=== PATIENT | male | born 1965 | race Caucasian/White ===

== ENCOUNTER 2020-08-12 10:48 | Outpatient (REF) | payer OTHER, SELFPAY ==
[2020-08-12 14:35] LABS: Hemoglobin 16.2 g/dl (14.0-18.0); Mean Corpuscular HGB Conc 33.8 g/dl (31.0-36.0); Mean Corpuscular Hemoglobin 32.3 pg (27.0-33.0); Mean Corpuscular Volume 95.6 fL (80-98); Platelet Count 211 X10*3/uL (160-400); Red Blood Count 5.02 X10*6/uL (4.60-5.80); Red Cell Distribution Width 12.1 % (11.0-16.0); White Blood Count 5.9 X10*3/uL (4.8-10.8)
[2020-08-12 15:00] LABS: Alanine Aminotransferase 30 U/L (0-40); Albumin Level 4.6 g/dL (3.5-5.0); Alkaline Phosphatase 55 U/L (39-117); Anion Gap 14 (12-20); Aspartate Amino Transferase 25 U/L (5-37); Bilirubin Total 0.7 mg/dL (0.0-1.0); Blood Urea Nitrogen 17 mg/dL (9-16); Calcium 9.4 mg/dL (8.4-10.2); Carbon Dioxide 28 mmol/L (22-29); Chloride 103 mmol/L (96-108); Cholesterol 233 mg/dL; Estimated Glomerular Filt Rate > 60; Glucose Fasting 80 mg/dL (60-99); HDL Cholesterol 59 mg/dL; LDL Cholesterol Calculated 156 mg/dl; Potassium 4.4 mmol/L (3.3-5.1); Sodium 141 mmol/L (135-145); Total Protein 7.5 g/dL (6.5-8.0); Triglycerides 90 mg/dL
[2020-08-12 15:02] LABS: Glucose Urine UA NEG (NEG); Leukocyte Esterase Urine NEG (NEG); Nitrite Urine NEG (NEG); Urine Blood NEG (NEG); Urine Ketones NEG (NEG); Urine Protein NEG (NEG-TRACE)
[2020-08-12 15:03] LABS: Appearance Urine CLEAR; Color Urine YELLOW
[2020-08-12 15:11] LABS: RBC Urine 0-2 /HPF (0); WBC Urine 0 /HPF (0-4)
[2020-08-12 15:24] LABS: Prostate Specific Antigen Scr 2.49 ng/mL (<0.05-4.0)
== END 2020-08-12 10:49 | disposition home or self-care (01) ==
LOC: HO.HMGCLDS 10:48
PROVIDERS: PCP Internal Medicine; Visit Provider Internal Medicine
DX: Z00.00 Encounter for general adult medical examination without abnormal findings (principal)
CPT/HCPCS: 36415; 80053; 80061; 81001; 84153; 85027

== ENCOUNTER 2021-10-07 07:28 | Outpatient (REF) | payer OTHER, SELFPAY ==
[2021-10-07 11:34] LABS: Appearance Urine CLEAR; Color Urine YELLOW; Glucose Urine UA NEG (NEG); Leukocyte Esterase Urine NEG (NEG); Nitrite Urine NEG (NEG); Specific Gravity - Urine 1.015 (1.005-1.025); Urine Blood NEG (NEG); Urine Ketones NEG (NEG); Urine Protein NEG (NEG-TRACE)
[2021-10-07 11:38] LABS: Hematocrit 46.3 % (42.0-52.0); Hemoglobin 15.5 g/dl (14.0-18.0); Mean Corpuscular HGB Conc 33.5 g/dl (31.0-36.0); Mean Corpuscular Hemoglobin 31.8 pg (27.0-33.0); Mean Corpuscular Volume 94.9 fL (80.0-98.0); Mean Platelet Volume 10.1 fL (9.4-12.4); Platelet Count 204 X10*3/uL (160-400); Red Blood Count 4.88 X10*6/uL (4.60-5.80); Red Cell Distribution Width 12.6 % (11.0-16.0); White Blood Count 5.1 X10*3/uL (4.8-10.8)
[2021-10-07 11:58] LABS: Alanine Aminotransferase 38 U/L (0-40); Albumin Level 4.3 g/dL (3.5-5.0); Alkaline Phosphatase 52 U/L (39-117); Anion Gap 13 (12-20); Aspartate Amino Transferase 28 U/L (5-37); Bilirubin Total 0.4 mg/dL (0.0-1.0); Blood Urea Nitrogen 15 mg/dL (9-16); Calcium 10.3 mg/dL (8.4-10.2); Carbon Dioxide 28 mmol/L (22-29); Chloride 103 mmol/L (96-108); Cholesterol 228 mg/dL; Estimated Glomerular Filt Rate > 60; Glucose Fasting 95 mg/dL (60-99); HDL Cholesterol 57 mg/dL; LDL Cholesterol Calculated 158 mg/dl; Potassium 5.1 mmol/L (3.3-5.1); Sodium 139 mmol/L (135-145); Total Protein 7.3 g/dL (6.5-8.0); Triglycerides 65 mg/dL
[2021-10-07 12:01] LABS: RBC Urine 0-2 /HPF (0); WBC Urine 0 /HPF (0-4)
[2021-10-07 12:06] LABS: Prostate Specific Antigen Scr 3.08 ng/mL (<0.05-4.0)
[2021-10-09 05:06] LABS: Lyme Abs Screen <0.90 index
== END 2021-10-07 07:29 | disposition home or self-care (01) ==
LOC: HO.HMGCLDS 07:28
PROVIDERS: Visit Provider Internal Medicine
DX: Z00.00 Encounter for general adult medical examination without abnormal findings (principal); Z12.5 Encounter for screening for malignant neoplasm of prostate; T14.8XXA Other injury of unspecified body region, initial encounter; W57.XXXA Bitten or stung by nonvenomous insect and other nonvenomous arthropods, initial encounter
CPT/HCPCS: 36415; 80053; 80061; 81001; 84153; 85027; 86617; 86618

== ENCOUNTER 2022-05-13 13:13 | Emergency (ER) | payer OTHER, SELFPAY ==
--- NOTE | ~2022-05-13 | CT_ITS ---
EXAMINATION: CT ABDOMEN AND PELVIS WITHOUT CONTRAST CLINICAL INFORMATION: Left lower quadrant abdominal pain. Rule out diverticulitis COMPARISON: None TECHNIQUE: Multidetector volumetric imaging was performed from the superior aspect of the liver through the pubic symphysis. Sagittal and coronal reformatted images were obtained on the technologist's workstation. This CT examination was performed using dose optimization techniques as appropriate, variously including the following: *Automated exposure control *Adjustment of mA and/or kV according to patient size (this includes techniques or standardized protocols for targeted exams where dose is matched to indication/reason for exam; i.e. extremities or head) *Use of iterative reconstruction technique DLP: 460 mGy-cm FINDINGS: LUNG BASES: The visualized lung bases are unremarkable. LIVER, GALLBLADDER, AND BILIARY TREE: The liver is normal in size, shape, and attenuation. No focal hepatic lesion or biliary ductal dilatation is present. Gallbladder is incompletely distended and contains couple small calcified stones. No gallbladder wall thickening or pericholecystic inflammatory changes. PANCREAS: Unremarkable. SPLEEN: Unremarkable. ADRENAL GLANDS: Unremarkable. KIDNEYS AND URETERS: The kidneys are normal in size, shape, and attenuation. No hydronephrosis, hydroureter, or calculi seen. No perinephric stranding. BLADDER: Unremarkable. GASTROINTESTINAL TRACT: Colonic diverticulosis. Short segment mural thickening of the proximal sigmoid colon with pericolonic inflammatory stranding consistent with acute diverticulitis. No extraluminal gas or pericolonic abscess. No additional bowel wall thickening. No dilated bowel loops. Normal appendix. No free air or ascites. ABDOMINAL WALL: No significant hernia is appreciated. Both testes appear retracted into the upper scrotum/lower inguinal canals. LYMPH NODES: No lymphadenopathy. VASCULAR: Unremarkable. PELVIC VISCERA: Unremarkable. OSSEOUS STRUCTURES: No acute fracture or suspicious osseous lesion. CT/CT abdomen pelvis wo IV con IMPRESSION: 1. Findings consistent with acute uncomplicated sigmoid diverticulitis. No evidence of perforation or abscess. 2. Cholelithiasis.
[2022-05-13 13:41] VITALS: BP 114/76; PULSE 88; RESP 17; TEMP 36.3; O2SAT 97; BMI 25.8
--- NOTE | 2022-05-13 13:41 | ED_ITS ---
HPI - Abdominal Pain General Chief Complaint: Abdominal Pain Stated Complaint: diverticulitis Time Seen by Provider: 05/13/22 17:46 Source: patient Mode of arrival: ambulatory Limitations: no limitations History of Present Illness HPI narrative: 56-year-old male here with left lower quadrant abdominal pain since Wednesday with no nausea, vomiting, diarrhea, urinary symptoms, fevers or chills. Seen at urgent care and referred in for further evaluation Related Data Home Medications Medication Instructions Recorded Confirmed multivitamin 1 tab PO DAILY 08/12/20 08/13/21 omega-3 fatty acids 500 mg capsule 500 mg PO DAILY 08/12/20 08/13/21 Previous Rx's Medication Instructions Recorded terbinafine HCl 250 mg tablet 250 mg PO DAILY #90 tabs 08/12/20 vardenafil 20 mg tablet (Levitra) 20 mg PO DAILY #20 tabs 08/12/20 pravastatin 20 mg tablet 20 mg PO DAILY #90 tabs 04/08/22 amoxicillin 875 mg-potassium 1 tab PO BID #14 tabs 05/13/22 clavulanate 125 mg tablet Allergies Allergy/AdvReac Type Severity Reaction Status Date / Time No Known Allergies Allergy Verified 05/13/22 12:43 Review of Systems Review of Systems Yes all other systems are reviewed and are negative Constitutional: Reports no additional constitutional complaints, Denies body ache(s), Denies chills, Denies fever(s), Denies headache(s) and Denies weakness Eyes: Reports no additional eye complaints and Denies change in vision Reports system reviewed and no additional complaints, except as documented, Denies dizziness, Denies headache(s), Denies nasal congestion, Denies nasal discharge and Denies neck pain Cardiovascular: Reports no additional cardiovascular complaints, Denies chest pain, Denies leg edema and Denies dyspnea Respiratory: Reports no additional respiratory complaints, Denies cough and Denies dyspnea Gastrointestinal: Reports no additional gastrointestinal complaints, Reports abdominal pain, Denies diarrhea, Denies nausea and Denies vomiting Genitourinary: Denies urinary incontinence Musculoskeletal: Reports no additional musculoskeletal complaints, Denies back pain, Denies arthralgias, Denies joint swelling, Denies neck pain, Denies numbness and Denies tingling Skin/Breast: Reports system reviewed and no additional complaints, except as docu and Denies rash Reports system reviewed and no additional complaints, except as documented, Denies dizziness, Denies headache(s), Denies numbness, Denies tingling and Denie s weakness [facility] Past Medical History Attestation statement: The following information was validated with the patient. Source: old records reviewed and nursing notes reviewed Medical History Annual physical exam Bulging lumbar disc Bulging of cervical intervertebral disc GERD (gastroesophageal reflux disease) Hyperlipemia Left ACL tear Tick bite Surgical History H/O colonoscopy H/O hernia repair Family History Family History Father Myocardial infarct Mother No problems noted. Social History Social History Housing: House Alcohol intake: current Alcohol intake frequency: holidays/special occasions only Patient Tobacco Use Status: Never used Tobacco e-Cigarette/Vaping Use: Never Used Current occupational status: employed Physical Exam ED Vital Signs: Vital Signs - 24 hr 05/13/22 13:41 Temperature 97.4 F Pulse Rate 88 Respiratory Rate 17 Blood Pressure 114/76 Pulse Oximetry 97 Oxygen Delivery Method Room Air BMI result Body Mass Index 25.8 Const General: cooperative, healthy appearing, comfortable and no acute distress Orientation/consciousness: patient oriented x3 Limitations: no limitations HENMT Head: Yes normal to inspection Ears: hearing grossly normal bilaterally Eyes General: appearance normal, both eyes and all related structures Neck Neck: Yes normal visual inspection Chest Chest palpation & inspection: normal inspection of the chest Resp Effort & Inspection: normal respiratory effort Cardio Peripheral pulses: Peripheral pulses 2+ throughout GI Inspection: Yes normal to inspection Palpation (GI): Soft to palpation, Tenderness to palpation present (GI) (LLQ) with no rebound tenderness and no guarding Back/Spine/Pelvis Thoracic/Lumbar Spine: thoracic and lumbar spine normal to inspection Skin General skin exam: no rashes or lesions noted Neuro General: patient oriented x3 and moves all extremities Cognition (Neuro): normal cognition Gait exam (Neuro): Normal gait present Course Course Course Narrative: This is a rapid medical exam. Deferred additional HPI, ROS and PE to primary provider. 56 yo male here with left sided abdominal pain since Wednesday. No nausea/vomiting/diarrhea/urinary symptoms, fevers, chills. No abdominal surgery history. Patient was seen at urgent care and was referred in to rule out diverticulitis. At urgent care patient was noted to have heart rate of 110 and temperature 99.8 degrees. Will check labs including blood cultures, lactic acid, UA, COVID screen, CT scan A/P VSS Reevaluation(s) Reevaluation #1: 1750-CT consistent with acute diverticulitis. Labs are unremarkable. Patient tolerating p.o.. Pain well controlled. Patient be discharged home with course of antibiotics. Reviewed worrisome signs and symptoms of when to return to the emergency room. Comfortable plan for discharge home. Medical Decision Making Medical Decision Making [facility] Narrative: 56-year-old male here with left lower quadrant pain since Wednesday On exam tenderness to palpation. No rebound or guarding Differential Diagnosis Diverticulitis Lab Data [facility] Lab Attestation statement: I reviewed the patient's lab results. Result Diagrams: 05/13/22 14:35 05/13/22 14:35 Labs: Lab Results 05/13/22 05/13/22 05/13/22 Range/Units 14:35 14:35 14:35 WBC 10.2 (4.8-10.8) X10*3/uL RBC 4.91 (4.60-5.80) X10*6/uL Hgb 15.7 (14.0-18.0) g/dl Hct 46.2 (42.0-52.0) % MCV 94.1 (80.0-98.0) fL MCH 32.0 (27.0-33.0) pg MCHC 34.0 (31.0-36.0) g/dl RDW 12.1 (11.0-16.0) % Plt Count 217 (160-400) X10*3/uL MPV 9.5 (9.4-12.4) fL Immature Gran % (Auto) 0.4 (0.0-0.4) % Neut % (Auto) 77.5 H (45-73) % Lymph % (Auto) 13.4 L (20-40) % [place] % (Auto) 7.3 (2-11) % Eos % (Auto) 1.1 (0-4) % Baso % (Auto) 0.3 (0-2) % Lymph # (Auto) 1.4 (1.2-4.9) X10*3/uL [place] # (Auto) 0.7 (0.1-1.2) X10*3/uL Eos # (Auto) 0.1 (0.0-0.4) X10*3/uL Baso # (Auto) 0.0 (0.0-0.2) X10*3/uL Abs Immat Gran (auto) 0.04 H (0.00-0.03) X10*3/uL Absolute Neuts (auto) 7.9 (2.0-8.3) x10*3/uL Absolute Nucleated RBC 0.000 (0.0-0.012) X10*3/uL Nucleated RBC % (auto) 0.0 (0.0-0.2) /100WBC PT 11.9 (10.0-13.1) SEC INR 1.0 (0.9-1.1) Sodium 141 (135-145) mmol/L Potassium 4.2 (3.3-5.1) mmol/L Chloride 102 (96-108) mmol/L Carbon Dioxide 29 (22-29) mmol/L Anion Gap 14 (12-20) BUN 14 (9-16) mg/dL Creatinine 0.95 (0.5-1.4) mg/dL Estim Creat Clear Calc 85.0 Estimated GFR > 60 Random Glucose 99 (60-115) mg/dL Lactic Acid (0.5-2.0) mmol/L Calcium 10.0 (8.4-10.2) mg/dL Total Bilirubin 0.4 (0.0-1.0) mg/dL Direct Bilirubin < 0.2 (0.0-0.5) mg/dL AST 22 (5-37) U/L ALT 25 (0-40) U/L Alkaline Phosphatase 63 (39-117) U/L Total Protein 7.3 (6.5-8.0) g/dL Albumin 4.4 (3.5-5.0) g/dL Lipase 22 (8-78) U/L Influenza Type A (PCR) (Negative) Influenza Type B (PCR) (Negative) RSV RNA Qual (PCR) (Negative) SARS-CoV-2 RNA (RT-PCR) (Negative) 05/13/22 05/13/22 Range/Units 14:35 14:35 WBC (4.8-10.8) X10*3/uL RBC (4.60-5.80) X10*6/uL Hgb (14.0-18.0) g/dl Hct (42.0-52.0) % MCV (80.0-98.0) fL MCH (27.0-33.0) pg MCHC (31.0-36.0) g/dl RDW (11.0-16.0) % Plt Count (160-400) X10*3/uL MPV (9.4-12.4) fL Immature Gran % (Auto) (0.0-0.4) % Neut % (Auto) (45-73) % Lymph % (Auto) (20-40) % [place] % (Auto) (2-11) % Eos % (Auto) (0-4) % Baso % (Auto) (0-2) % Lymph # (Auto) (1.2-4.9) X10*3/uL [place] # (Auto) (0.1-1.2) X10*3/uL Eos # (Auto) (0.0-0.4) X10*3/uL Baso # (Auto) (0.0-0.2) X10*3/uL Abs Immat Gran (auto) (0.00-0.03) X10*3/uL Absolute Neuts (auto) (2.0-8.3) x10*3/uL Absolute Nucleated RBC (0.0-0.012) X10*3/uL Nucleated RBC % (auto) (0.0-0.2) /100WBC PT (10.0-13.1) SEC INR (0.9-1.1) Sodium (135-145) mmol/L Potassium (3.3-5.1) mmol/L Chloride (96-108) mmol/L Carbon Dioxide (22-29) mmol/L Anion Gap (12-20) BUN (9-16) mg/dL Creatinine (0.5-1.4) mg/dL Estim Creat Clear Calc Estimated GFR Random Glucose (60-115) mg/dL Lactic Acid 1.2 (0.5-2.0) mmol/L Calcium (8.4-10.2) mg/dL Total Bilirubin (0.0-1.0) mg/dL Direct Bilirubin (0.0-0.5) mg/dL AST (5-37) U/L ALT (0-40) U/L Alkaline Phosphatase (39-117) U/L Total Protein (6.5-8.0) g/dL Albumin (3.5-5.0) g/dL Lipase (8-78) U/L Influenza Type A (PCR) NEGATIVE (Negative) Influenza Type B (PCR) NEGATIVE (Negative) RSV RNA Qual (PCR) NEGATIVE (Negative) SARS-CoV-2 RNA (RT-PCR) NEGATIVE (Negative) Radiology Impression Discussion of test interpretation with radiology: I have reviewed the radiologist's reading. Radiologist Impression: IMPRESSION: 1.? Findings consistent with acute uncomplicated sigmoid diverticulitis. No evidence of perforation or abscess. 2.? Cholelithiasis. ? Discharge Plan Discharge Clinical Impression: Diverticulitis Patient Disposition: Home, Self-Care Instructions: Diverticulitis (ED), Diverticulitis Diet (ED) Prescriptions: New amoxicillin-pot clavulanate 875-125 mg tablet 1 tab PO BID Qty: 14 0RF No Action pravastatin 20 mg tablet 20 mg PO DAILY Qty: 90 1RF Rx Instructions: schedule next PCP appt for more refills multivitamin Tablet 1 tab PO DAILY omega-3 fatty acids 500 mg capsule 500 mg PO DAILY terbinafine HCl 250 mg tablet 250 mg PO DAILY Qty: 90 0RF vardenafil [Levitra] 20 mg tablet 20 mg PO DAILY Qty: 20 2RF Referrals: Lora Martinez MD [Primary Care Provider] - 1 week Stand Alone Forms: Work/School Release
[2022-05-13 14:44] LABS: MANUAL DIFF FLAG NO
[2022-05-13 14:47] LABS: Basophils Percent Auto 0.3 % (0-2); Eosinophils Absolute Auto 0.1 X10*3/uL (0.0-0.4); Eosinophils Percent Auto 1.1 % (0-4); Hematocrit 46.2 % (42.0-52.0); Hemoglobin 15.7 g/dl (14.0-18.0); Imm Gran Abs Auto 0.04 X10*3/uL (0.00-0.03); Imm Gran Pct Auto 0.4 % (0.0-0.4); Lymphocytes Absolute Auto 1.4 X10*3/uL (1.2-4.9); Lymphocytes Percent Auto 13.4 % (20-40); Mean Corpuscular Volume 94.1 fL (80.0-98.0); Mean Platelet Volume 9.5 fL (9.4-12.4); Monocytes Absolute Auto 0.7 X10*3/uL (0.1-1.2); Monocytes Percent Auto 7.3 % (2-11); Neutrophils Absolute Auto 7.9 x10*3/uL (2.0-8.3); Neutrophils Percent Auto 77.5 % (45-73); Platelet Count 217 X10*3/uL (160-400); Red Blood Count 4.91 X10*6/uL (4.60-5.80); Red Cell Distribution Width 12.1 % (11.0-16.0); White Blood Count 10.2 X10*3/uL (4.8-10.8)
[2022-05-13 14:53] LABS: Prothrombin Time 11.9 SEC (10.0-13.1)
[2022-05-13 15:05] LABS: Lactic Acid 1.2 mmol/L (0.5-2.0)
[2022-05-13 15:09] LABS: Alanine Aminotransferase 25 U/L (0-40); Albumin Level 4.4 g/dL (3.5-5.0); Alkaline Phosphatase 63 U/L (39-117); Anion Gap 14 (12-20); Aspartate Amino Transferase 22 U/L (5-37); Bilirubin Direct < 0.2 mg/dL (0.0-0.5); Bilirubin Total 0.4 mg/dL (0.0-1.0); Blood Urea Nitrogen 14 mg/dL (9-16); Carbon Dioxide 29 mmol/L (22-29); Chloride 102 mmol/L (96-108); Estimated Glomerular Filt Rate > 60; Glucose Random 99 mg/dL (60-115); Lipase 22 U/L (8-78); Potassium 4.2 mmol/L (3.3-5.1); Sodium 141 mmol/L (135-145); Total Protein 7.3 g/dL (6.5-8.0)
[2022-05-13 15:24] LABS: Influenza A PCR NEGATIVE (Negative); Influenza B PCR NEGATIVE (Negative); Resp Syncy Virus RNA Qual PCR NEGATIVE (Negative); SARS COV2 PCR INHOUSE NEGATIVE (Negative)
== END 2022-05-13 18:05 | disposition home or self-care (01) ==
LOC: HO.ED 17:55
PROVIDERS: Nurse Practitioner Family; Emergency Provider Emergency Medicine; PCP Internal Medicine
DX: K57.32 Diverticulitis of large intestine without perforation or abscess without bleeding (principal); R10.32 Left lower quadrant pain; Z20.822 Contact with and (suspected) exposure to COVID-19
CPT/HCPCS: 0241U; 36415; 74176; 80048; 80076; 83605; 83690; 85025; 85610; 87040; 99282; 99284

== ENCOUNTER 2022-06-24 09:04 | Outpatient (REF) | payer OTHER, SELFPAY ==
[2022-06-24 11:30] LABS: Hematocrit 46.3 % (42.0-52.0); Hemoglobin 15.9 g/dl (14.0-18.0); Mean Corpuscular HGB Conc 34.3 g/dl (31.0-36.0); Mean Corpuscular Hemoglobin 32.4 pg (27.0-33.0); Mean Corpuscular Volume 94.5 fL (80.0-98.0); Platelet Count 213 X10*3/uL (160-400); Red Cell Distribution Width 12.2 % (11.0-16.0)
[2022-06-24 12:09] LABS: Alanine Aminotransferase 31 U/L (0-40); Albumin Level 4.3 g/dL (3.5-5.0); Alkaline Phosphatase 52 U/L (39-117); Anion Gap 13 (12-20); Aspartate Amino Transferase 28 U/L (5-37); Bilirubin Total 0.6 mg/dL (0.0-1.0); Blood Urea Nitrogen 16 mg/dL (9-16); Calcium 9.5 mg/dL (8.4-10.2); Carbon Dioxide 27 mmol/L (22-29); Chloride 103 mmol/L (96-108); Cholesterol 189 mg/dL; Estimated Glomerular Filt Rate > 60; Glucose Fasting 88 mg/dL (60-99); HDL Cholesterol 55 mg/dL; LDL Cholesterol Calculated 118 mg/dl; Potassium 4.2 mmol/L (3.3-5.1); Sodium 139 mmol/L (135-145); Total Protein 7.1 g/dL (6.5-8.0); Triglycerides 84 mg/dL
== END 2022-06-24 09:05 | disposition home or self-care (01) ==
LOC: HO.HMGCLDS 09:04
PROVIDERS: PCP Internal Medicine; Visit Provider Internal Medicine
DX: Z00.00 Encounter for general adult medical examination without abnormal findings (principal); Z12.5 Encounter for screening for malignant neoplasm of prostate; E78.5 Hyperlipidemia, unspecified
CPT/HCPCS: 36415; 80053; 80061; 84153; 85027

== ENCOUNTER → 2022-10-13 15:36 | Outpatient (BNVA) | payer OTHER, SELFPAY | PROVIDERS: PCP Internal Medicine; Visit Provider Nurse Practitioner Family ==

== ENCOUNTER 2022-11-24 11:48 | Day surgery (SDC) | payer OTHER, SELFPAY ==
--- NOTE | 2022-11-23 10:42 | HO.ANESPROP2 ---
Documented by User: Paola Hoffmann NP 11/23/22 10:43 HPI - Anesthesia Eval Consult details Narrative: 57yo M for Colonoscopy PMFSH Active Problems Active Problems: All Active Problems (Updated 08/26/22 @ 10:07 by Lora Martinez MD) Tick bite (Acute) Colon polyps (Acute) Elevated PSA (Acute) Actinic keratoses (Acute) GERD (gastroesophageal reflux disease) (Acute) Tick bite (Acute) Hyperlipemia (Acute) Annual physical exam (Acute) Past Medical History Medical History Annual physical exam Bulging lumbar disc Bulging of cervical intervertebral disc GERD (gastroesophageal reflux disease) Hyperlipemia Left ACL tear Tick bite Family History Family History Father Myocardial infarct Mother No problems noted. Surgical History Surgical History H/O colonoscopy H/O hernia repair Social History Social History Housing: House Alcohol intake: current Alcohol intake frequency: holidays/special occasions only Patient Tobacco Use Status: Never used Tobacco e-Cigarette/Vaping Use: Never Used Use of substances other than those prescribed or required for medical reasons: No Are you DNR?: No Advance Directives: No Advance Directives Information Provided: Yes Current occupational status: employed Cognitive needs: No Hearing needs: No Vision needs: No Meds Allergies Allergy/AdvReac Type Severity Reaction Status Date / Time No Known Allergies Allergy Verified 11/20/22 14:09 Home Medications Medication Instructions Recorded Confirmed Last Taken Type multivitamin 1 tab PO DAILY 08/12/20 11/20/22 Unknown History omega-3 fatty acids 500 mg capsule 500 mg PO DAILY 08/12/20 11/20/22 Unknown History Exam Exam Date and Time: November 23, 2022 1042 Pertinent Lab Results Pertinent Lab Results: Laboratory Tests 06/24/22 06/24/22 09:23 09:23 WBC 6.0 Hgb 15.9 Hct 46.3 Plt Count 213 Sodium 139 Potassium 4.2 Chloride 103 Carbon Dioxide 27 BUN 16 Creatinine 1.08 Assessment and Plan Assessment Anesthesia Assessment: Chart Reviewed Documented by User: Jerry Faye MD 11/24/22 12:35 PMFSH Past Medical History Medical History Annual physical exam Bulging lumbar disc Bulging of cervical intervertebral disc GERD (gastroesophageal reflux disease) Hyperlipemia Left ACL tear Tick bite Family History Family History Father Myocardial infarct Mother No problems noted. Family history of problems with anesthesia: No Surgical History Surgical History H/O colonoscopy H/O hernia repair History of Problems with Anesthesia: No Social History Social History Housing: House Alcohol intake: current Alcohol intake frequency: holidays/special occasions only Patient Tobacco Use Status: Never used Tobacco e-Cigarette/Vaping Use: Never Used Use of substances other than those prescribed or required for medical reasons: No Are you DNR?: No Advance Directives: No Advance Directives Information Provided: Yes Current occupational status: employed Cognitive needs: No Hearing needs: No Vision needs: No Meds Allergies Allergy/AdvReac Type Severity Reaction Status Date / Time No Known Allergies Allergy Verified 11/20/22 14:09 Home Medications Medication Instructions Recorded Confirmed Last Taken Type multivitamin 1 tab PO DAILY 08/12/20 11/20/22 Unknown History omega-3 fatty acids 500 mg capsule 500 mg PO DAILY 08/12/20 11/20/22 Unknown History Exam Airway Mallampati Class: III TM Dist: >3cm Neck ROM: Full Assessment and Plan Assessment Anesthesia Assessment: Anesthesia Plan Discussed Final Anesthetic Review Family History of Problems with Anesthesia: No History of Problems with Anesthesia: No NPO: Yes ASA Class: II Final Preanesthetic Review: No Changes in Pt Med Stat, Meds/Allgs Chart Reviewed, Consent Obtained/Reviewed and Anes Risks/Benef Reviewed Patient Risk: Low Procedure Risk: Low Anesthetic Plan Anesthetic Plan: MAC: Disposition: Standard PACU
[2022-11-24 12:18] VITALS: BP 136/86; PULSE 71; RESP 16; TEMP 36.4; O2SAT 99; BMI 25.0
[2022-11-24] MEDS: Lactated Ringers 1,000 ML 100 ML IVCONT (12:27)
[2022-11-24 12:35] VITALS: BMI 25.0
--- NOTE | 2022-11-24 12:50 | MHC.SHP ---
Pre-Procedural Eval Section A Date of Service: 11/24/22 Section B Chief Complaint: Polyp of colon Relevant Family History (Specify if Yes): No Relevant Social History: None Present Medications: see Short Stay Collaborative assessment Medical History: Significant History (Bulging lumbar disc Bulging of cervical intervertebral disc GERD (gastroesophageal reflux disease) Hyperlipemia Left ACL tear Tick bite) History of Previous Operations: Relevant previous surgery/procedure and date(s) (H/O colonoscopy H/O hernia repair) Allergies: Allergies Allergy/AdvReac Type Severity Reaction Status Date / Time No Known Allergies Allergy Verified 11/20/22 14:09 Review of Systems Sugical H&P ROS: Negative: Constitution, Cardiovascular, Respiratory, Neurological, Psychiatric, Hem-Onc, Allergic/Immunologic, Gastrointestinal, Genitourinary, Musculoskeletal, Integumentary, Endocrine and Eyes/Ears/Nose/Throat Exam Surgical H&P Exam: Normal: HEENT, Normal: Heart, Normal: Lungs, Normal: Extremities, Normal: Abdomen, Normal: Skin and Normal: Neurological Plan Diagnosis/Plan: Unchanged I have reviewed the history and physical and performed a pertinent physical examination on my patient. No changes have occurred unless specified. Time Spent With Patient Time: Total time managing care of this patient today ____ minutes.
--- NOTE | 2022-11-24 12:58 | W.PM.OPN ---
Operative Note Operative Note Date of Service: 11/24/22 Narrative: Operative Information Procedure Description: Colonoscopy Indication: hx of colon polyps Anesthesia: MAC COLONOSCOPY Instrument: Olympus variable stiffness pediatric scope 190L Colonoscopy Monitoring: Vital signs and clinical assessment, continuous EKG monitoring, Pulse oximetry, Carbon Dioxide monitoring and blood pressure monitoring were done throughout the procedure. Colon withdrawal time was 6 minutes. Procedure: The patient was placed in the left lateral decubitis position and pre-procedure medications were administered. After a digital rectal examination of the ano-rectum, the video colonoscope was inserted into the rectum and advanced through the colon to the cecum/TI. The colonoscope was slowly withdrawn in a retrograde panoramic fashion and the colon mucosa was carefully examined including a retroflexed view of the rectum. Findings and interventions are described below. Procedure Difficulty: easy Findings: Terminal Ileum-normal Cecum:normal right sided retroflexion was normal Ascending Colon: normal Transverse Colon -normal Descending Colon:normal Sigmoid Colon: moderate diverticulosis with some luminal narrowing Rectum: Retroflexion with small internal hemorrhoids, grade I Anorectum - normal Colon preparation: [place] Bowel Preparation Scale Right colon; 3 Transverse colon: 3 Left colon; 3 (0 = Unprepared colon segment with mucosa not seen due to solid stool that cannot be cleared. 1 = Portion of mucosa of the colon segment seen, but other areas of the colon segment not well seen due to staining, residual stool and/or opaque liquid. 2 = Minor amount of residual staining, small fragments of stool and/or opaque liquid, but mucosa of colon segment seen well. 3 = Entire mucosa of colon segment seen well with no residual staining, small fragments of stool or opaque liquid) Impression and Post Procedure Diagnosis: internal hemorrhoids diverticular disease Plan: High fiber diet leaflet Avoid straining at stool, epsom salts and sitz bath, anusol supps or cream Repeat Colonoscopy in 5-6 years or earlier if clinically indicated due to prio hx of adenomatous polyps Above findings were reviewed with the patient and relevant handouts were provided if indicated.
[2022-11-24 13:27] VITALS: BP 99/61; PULSE 70; RESP 16; TEMP 36.3; O2SAT 96
[2022-11-24 13:42] VITALS: BP 107/75; PULSE 75; RESP 16; TEMP 37; O2SAT 98
== END 2022-11-24 14:57 | disposition home or self-care (01) ==
PROVIDERS: PCP Internal Medicine; Visit Provider Internal Medicine Gastroenterology
PROC: 0DJD8ZZ Inspection of Lower Intestinal Tract, Via Natural or Artificial Opening Endoscopic (ICD-10-PCS; CPT 45378; principal; 2022-11-24 13:40)
DX: Z12.11 Encounter for screening for malignant neoplasm of colon (principal); Z86.010 Personal history of colon polyps; K57.30 Diverticulosis of large intestine without perforation or abscess without bleeding; K64.0 First degree hemorrhoids; E78.5 Hyperlipidemia, unspecified; K21.9 Gastro-esophageal reflux disease without esophagitis; Z79.899 Other long term (current) drug therapy
CPT/HCPCS: 45378

== ENCOUNTER 2022-12-30 07:40 | Outpatient (AMB) | payer OTHER, SELFPAY ==
--- NOTE | 2022-12-30 08:08 | MHC.OFFVIS ---
Intake Vital Signs 12/30/22 08:09 Height 5 ft 10 in Weight 169 lb 12.095 oz BMI 24.4 BP 137/77 Blood Pressure Location Lt brachial Position Sitting Pulse 62 Intake Visit Reasons: Polyps Intake Note: Rylan presents in office as a est.patient for post-op for polyps pt got it done 11.24.22 PT CC: pt reports having no concerns pt denies any other GI Issues [employer] Required: No Accompanied by: Self / Same As Patient Allergies No Known Allergies Allergy (Verified 12/30/22 08:08) HPI Polyps HPI Details LAST VISIT Colon polyps Screen for colon cancer Patient denies any GI, cardiac or respiratory symptoms.? Denies any issues with anesthesia in the past.? Denies any history of sleep apnea.? No history infectious diseases in the past or present.? Not on any anticoagulation therapy.? As mentioned above patient had colonoscopy in May of 2018, tubular adenoma found and recommendation was made to return in 3-5 years. Patient denies melena, hematochezia, unintentional weight loss or ribbon like stools.? Discussed at length the pre-procedure,? prep, diet & medications as well as what to expect prior, during and after the procedure.?? Stressed the importance of good bowel prep. ?Recommended the use of Vaseline or Calmoseptine OTC & baby wipes with bowel movements to promote comfort.? ?Patient verbalizes understanding and agrees to plan of care.? He was given the opportunity to ask questions and all questions answered.? We will see him after the procedure.? Plan Medications New bisacodyl (Dulcolax (bisacodyl)) take 2 tabs at noon the day before your colonoscopy 10 mg (2 x 5 mg) PO ONCE 1 day 2 tabs 0RF Z12.11 polyethylene glycol 3350 (Miralax) As directed by gastroenterology department at [facility] 238 grams PO ONCE 238 grams 0RF Z12.11 COLONOSCOPY Findings: Terminal Ileum-normal Cecum:normal right sided retroflexion was normal Ascending Colon: normal Transverse Colon -normal Descending Colon:normal Sigmoid Colon: moderate diverticulosis with some luminal narrowing Rectum: Retroflexion with small internal hemorrhoids, grade I Anorectum - normal Colon preparation: Hop Bottom Bowel Preparation Scale Right colon; 3 Transverse colon: 3 Left colon; 3 (0 = Unprepared colon segment with mucosa not seen due to solid stool that cannot be cleared. 1 = Portion of mucosa of the colon segment seen, but other areas of the colon segment not well seen due to staining, residual stool and/or opaque liquid. 2 = Minor amount of residual staining, small fragments of stool and/or opaque liquid, but mucosa of colon segment seen well. 3 = Entire mucosa of colon segment seen well with no residual staining, small fragments of stool or opaque liquid) Impression and Post Procedure Diagnosis: internal hemorrhoids diverticular disease Plan: High fiber diet leaflet Avoid straining at stool, epsom salts and sitz bath, anusol supps or cream Repeat Colonoscopy in 5-6 years or earlier if clinically indicated due to prio hx of adenomatous polyps TODAY'S VISIT Patient is here today for follow-up and to discuss colonoscopy results. Patient denies any ill effects from the prep, anesthesia or procedure itself. Patient denies any GI concerning symptoms. Reports to be moving his bowels daily without any issues. Occasionally takes Metamucil to help her move his bowels better. Patient occasionally will have blood after bowel movement when wiping. Otherwise denies melena, hematochezia, unintentional weight loss or ribbon like stools. Patient denies dyspepsia, dysphagia or odynophagia. Colonoscopy results discussed with patient. Diverticulosis of sigmoid colon, internal hemorrhoids otherwise no polyps found. [facility] Medical History Annual physical exam Bulging lumbar disc Bulging of cervical intervertebral disc GERD (gastroesophageal reflux disease) Hyperlipemia Left ACL tear Tick bite Surgical History H/O colonoscopy H/O hernia repair Family History Father Myocardial infarct Mother No problems noted. Social History Housing: House Alcohol intake: current Alcohol intake frequency: holidays/special occasions only Patient Tobacco Use Status: Never used Tobacco e-Cigarette/Vaping Use: Never Used Current occupational status: employed Cognitive needs: No Hearing needs: No Vision needs: No Review of Systems Const Denies weight gain and Denies weight loss ENT Reports no additional complaints, Denies dysphagia and Denies odynophagia Card Reports no additional complaints Resp Reports no additional complaints GI Denies abdominal pain, Denies belching, Denies melena, Denies bloating, Denies change in bowel habits, Denies dysphagia, Denies excessive flatus, Denies dyspepsia, Denies heartburn, Denies diarrhea, Denies loose stools, Denies nausea, Denies odynophagia and Denies vomiting Reports no additional complaints Musc Reports no additional complaints Neuro Reports no additional complaints Psych Reports no additional complaints Endo Reports no additional complaints Physical Exam Vital Signs: Last Vital Signs Pulse 62 12/30/22 08:09 BP 137/77 12/30/22 08:09 BMI result Body Mass Index 24.4 Const General: healthy appearing, no acute distress and well developed Nutritional Appearance: well nourished Orientation/consciousness: patient oriented x3 HEENT Head: Yes normal to inspection, Yes normocephalic and Yes atraumatic Face and sinus: Yes normal facial exam Mouth: Normal oral and palatal mucosa present Throat: Yes posterior oropharynx normal, Yes tonsils normal and Yes uvula midline Eyes General: appearance normal, both eyes and all related structures Neck Neck: Yes normal visual inspection, Yes full ROM and Yes trachea midline Thyroid: Thyroid normal Resp Effort & Inspection: normal respiratory effort, able to speak in complete sentences, no tracheal deviation and symmetric chest movement Auscultation: clear to auscultation bilaterally Cardio Rate: regular rate Heart sounds: S1 normal heart sound present and S2 normal heart sound present GI Inspection: Yes normal to inspection and No distended Palpation (GI): Soft to palpation, not firm, nontender and No hepatosplenomegaly present Auscultation: normal bowel sounds General: Yes no CVA tenderness Back/Spine/Pelvis Back: no CVA tenderness Skin General skin exam: elasticity normal, turgor normal and dry skin Neuro General: patient oriented x3 Psych Appearance: grossly normal Mental Status: mental status grossly normal Speech and movement: Normal speech and movement present Affect: normal affect Assessment & Plan Assessment & Plan (1) Status post colonoscopy: Code(s): Z98.890 - Other specified postprocedural states Plan: Colonoscopy will be repeated in 5 years. Last colonoscopy had 6 polyps. Patient denies any ill effects from the prep, anesthesia or procedure itself. Patient will follow-up with us on as-needed basis. He is agreeable to this plan and verbalizes understanding of instructions. He was given the opportunity to ask questions and all questions answered. Thank you for allowing me to participate in his care Coding Level of Care Code Est Pt Level 3 (00267) Diagnoses Status post colonoscopy Z98.890 Time Spent (min) 25 Comment 15 minutes spent with patient and additional 10 minutes spent reviewing his records
[2022-12-30 08:09] VITALS: BP 137/77; PULSE 62; BMI 24.4
== END 2022-12-30 08:26 | disposition home or self-care (01) ==
PROVIDERS: PCP Internal Medicine; Visit Provider Nurse Practitioner Family
DX: Z98.890 Other specified postprocedural states (principal)
CPT/HCPCS: 99213

== ENCOUNTER → 2022-12-30 07:40 | Outpatient (BNVA) | payer OTHER, SELFPAY | PROVIDERS: PCP Internal Medicine; Visit Provider Nurse Practitioner Family ==

== ENCOUNTER 2023-07-21 14:07 | Outpatient (AMB) | payer OTHER, SELFPAY ==
--- NOTE | 2023-07-21 14:09 | A.OFFPC_ITS ---
Vital Signs 07/21/23 14:10 Height 5 ft 10 in Weight 167 lb BMI 24.0 BP 106/78 Blood Pressure Location Lt brachial Position Sitting Pulse 99 Pulse Source Pulse Oximeter Pulse Oximetry (%) 95 Oxygen Delivery Method Room Air Intake Visit Reasons: Stress Related, loss of sleep Intake Note: Pt is here today for a sick visit. Pt c/o a lot of stress, anxiety, loss of appetite, not sleeping. Allergies No Known Allergies Allergy (Verified 07/21/23 14:12) Medication List - Last Reconciled 07/21/23 by Lora Martinez MD multivitamin 1 tab PO DAILY omega-3 fatty acids 500 mg PO DAILY pravastatin 20 mg PO DAILY Tobacco use date assessed: 07/21/23 Dental Screening Dental Screen Date: 07/21/23 Did you have a dental visit in the last 12 months?: Yes Did you have a dental problem in the last 6 months where you did not have access to dental care?: No Was dental information given to patient?: Patient has dentist HPI Stress Related, loss of sleep HPI Details Pt c/o anxiety and insomnia related to a stressful event at work 1 week ago. Patient reports decreased appetite and difficulty sleeping at night. Pt denies suicidal ideation. He has been talking to his friends and going on the [employer]. [facility] Medical History GERD (gastroesophageal reflux disease) Tick bite Hyperlipemia Annual physical exam Left ACL tear Bulging lumbar disc Bulging of cervical intervertebral disc Surgical History H/O hernia repair H/O colonoscopy Family History Father Myocardial infarct Mother No problems noted. Social History Housing: House Alcohol intake: current Alcohol intake frequency: holidays/special occasions only Patient Tobacco Use Status: Never used Tobacco e-Cigarette/Vaping Use: Never Used Current occupational status: employed Cognitive needs: No Hearing needs: No Vision needs: Yes Questionnaire Thrive Questionnaire Date Thrive assessed: 08/26/22 AUDIT C Alcohol Use Questionnaire (AUDIT-C) 1. How often do you have a drink containing alcohol?: Monthly or less 2. How many drinks containing alcohol do you have on a typical day when you are drinking?: 1 or 2 3. How often do you have six or more drinks on one occasion?: Never Total Score: 1 GILBERT-7 AMB Questionnaire GILBERT-7 Date GILBERT - 7 assessed: 08/26/22 Source: Developed by Drs. Jamari Rodriguez, Babs Barahona, Dnaiel Cortez and colleagues, with an educational andie from [employer]. Review of Systems Const All systems reviewed & are unremarkable except as noted in HPI and below Reports no additional complaints Eyes Reports no additional complaints ENT Reports no additional complaints Resp Reports no additional complaints GI Reports no additional complaints Reports no additional complaints Physical exam (Primary Care) Vital Signs: Last Vital Signs Pulse 99 07/21/23 14:10 BP 106/78 07/21/23 14:10 Pulse Ox 95 07/21/23 14:10 Oxygen Delivery Method Room Air 07/21/23 14:10 BMI result Body Mass Index 24.0 Tobacco/Smoking Status: Tobacco use Status Tobacco use date assessed 07/21/23 07/21/23 14:14 Patient Tobacco Use Status Never used Tobacco 07/21/23 14:14 e-Cigarette/Vaping Use Never Used 07/21/23 14:14 Thrive Assessment: Date of Thrive Assessment Date Thrive assessed 08/26/22 07/21/23 14:14 Const General: no acute distress HENMT Head: Yes normal to inspection Eyes General: appearance normal, both eyes and all related structures Neck Neck: Yes supple Resp Effort & Inspection: normal respiratory effort Cardio Heart sounds: S1 normal heart sound present and S2 normal heart sound present Assessment and Plan Assessment & Plan (1) Anxiety: Code(s): F41.9 - Anxiety disorder, unspecified Plan: Zoloft 25 for the first 3 days then increase to 50 mg will be started. Zolpidem for 7 tablets is prescribed to take as needed only. Patient was given option of counseling but he has not interested. Stress management including regular physical activity and maintaining social engagement discussed with the patient, follow-up in 1 month Medications: New zolpidem may repeat once if no response in 30-60 minutes 5 mg PO BEDTIME PRN 7 tabs 0RF sleep sertraline (Zoloft) 1/2 tabl for 3 days, then increase to 50 mg 50 mg PO DAILY 30 tabs 3RF Coding Level of Care Code Est Pt Level 3 (47055) Diagnoses Anxiety F41.9
[2023-07-21 14:10] VITALS: BP 106/78; PULSE 99; O2SAT 95; BMI 24.0
== END 2023-07-21 14:52 | disposition home or self-care (01) ==
PROVIDERS: PCP Internal Medicine; Visit Provider Internal Medicine
DX: F41.9 Anxiety disorder, unspecified (principal)
CPT/HCPCS: 99213

== ENCOUNTER 2023-08-25 12:16 | Outpatient (AMB) | payer OTHER, SELFPAY ==
--- NOTE | 2023-08-25 12:42 | MHC.PC.OV ---
Vital Signs 08/25/23 12:48 Height 5 ft 10 in Weight 164 lb BMI 23.5 BP 114/74 Blood Pressure Location Lt brachial Position Sitting Pulse 90 Pulse Source Pulse Oximeter Pulse Oximetry (%) 94 Oxygen Delivery Method Room Air Intake Visit Reasons: 1 month follow up Intake Note: Pt is here today for 1 month follow up visit. Allergies No Known Allergies Allergy (Verified 08/25/23 12:57) Medication List - Last Reconciled 08/25/23 by Lora Martinez MD ciclopirox 8% 1 appl topical BEDTIME multivitamin 1 tab PO DAILY omega-3 fatty acids 500 mg PO DAILY pravastatin 20 mg PO DAILY sertraline 100 mg PO DAILY zolpidem 5 mg PO BEDTIME PRN Tobacco use date assessed: 08/25/23 HPI 1 month follow up HPI Details Pt presents for f/u anxiety/depression. Pt has been taking Zoloft but feels only slightly better. Pt denies suicidal ideation he has been exercising twice a day going for walks and interacting with his friends. Patient is not interested in counseling. [facility] Medical History GERD (gastroesophageal reflux disease) Tick bite Hyperlipemia Annual physical exam Left ACL tear Bulging lumbar disc Bulging of cervical intervertebral disc Surgical History H/O hernia repair H/O colonoscopy Family History Father Myocardial infarct Mother No problems noted. Social History Housing: House Alcohol intake: current Alcohol intake frequency: holidays/special occasions only Patient Tobacco Use Status: Never used Tobacco e-Cigarette/Vaping Use: Never Used Current occupational status: employed Cognitive needs: No Hearing needs: No Vision needs: Yes Questionnaire PHQ-9 Over the last 2 weeks, how often have you been bothered by any of the following problems? 1. Little interest or pleasure in doing things: not at all 2. Feeling down, depressed, or hopeless: not at all 3. Trouble falling or staying asleep, or sleeping too much: not at all 4. Feeling tired or having little energy: not at all 5. Poor appetite or overeating: not at all 6. Feeling bad about yourself - or that you are a failure or have let yourself or your family down: not at all 7. Trouble concentrating on things, such as reading the newspaper or watching television: not at all 8. Moving or speaking so slowly that other people could have noticed. Or the opposite - being so fidgety or restless that you have been moving around a lot more than usual: not at all 9. Thoughts that you would be better off or of hurting yourself in some way: not at all Total score: 0 Depression Screening Interpretation: Negative Depression Screening Done: Yes Source: Developed by Drs. Jamari Rodriguez, Babs Barahona, Daniel Cortez and colleagues, with an educational andie from [employer]. Thrive Questionnaire Date Thrive assessed: 08/25/23 I am a: Patient What is your living situation today?: I have a steady place to live Within the past 12 months, did the food you bought not last and you didn't have the money to get more?: Never true THRIVE Score: 0 GILBERT-7 AMB Questionnaire GILBERT-7 Date GILBERT - 7 assessed: 08/26/22 Source: Developed by Drs. Jamari Rodriguez, Babs Barahona, Daniel Cortez and colleagues, with an educational andie from [employer]. Review of Systems Const All systems reviewed & are unremarkable except as noted in HPI and below Reports no additional complaints Eyes Reports no additional complaints ENT Reports no additional complaints Card Reports no additional complaints Resp Reports no additional complaints GI Reports no additional complaints Reports no additional complaints Physical exam (Primary Care) Vital Signs: Last Vital Signs Pulse 90 08/25/23 12:48 BP 114/74 08/25/23 12:48 Pulse Ox 94 08/25/23 12:48 Oxygen Delivery Method Room Air 08/25/23 12:48 BMI result Body Mass Index 23.5 Tobacco/Smoking Status: Tobacco use Status Tobacco use date assessed 08/25/23 08/25/23 12:58 Patient Tobacco Use Status Never used Tobacco 08/25/23 12:42 e-Cigarette/Vaping Use Never Used 08/25/23 12:42 PHQ-9: PHQ-9 Score PHQ-9: Total score 0 08/25/23 12:59 Depression Screening Interpretation: Negative Thrive Assessment: Date of Thrive Assessment Date Thrive assessed 08/25/23 08/25/23 12:49 Const General: no acute distress HENMT Head: Yes normal to inspection Neck Neck: Yes no lymphadenopathy Resp Effort & Inspection: normal respiratory effort Auscultation: clear to auscultation bilaterally Cardio Rhythm: regular rhythm Heart sounds: S1 normal heart sound present and S2 normal heart sound present GI Inspection: Yes normal to inspection Palpation (GI): Soft to palpation Percussion: Yes normal to percussion Assessment and Plan Assessment & Plan (1) Annual physical exam: Code(s): Z00.00 - Encounter for general adult medical examination without abnormal findings Plan: Patient will return for a physical and fasting labs before (2) Hyperlipemia: Comment: Family history of CAD, father and brother in 50s Code(s): E78.5 - Hyperlipidemia, unspecified Plan: Continue statin (3) GERD (gastroesophageal reflux disease): Code(s): K21.9 - Gastro-esophageal reflux disease without esophagitis (4) Colon polyps: Comment: 2018, polyps, 11/[address] Pérez Code(s): K63.5 - Polyp of colon (5) Anxiety: Code(s): F41.9 - Anxiety disorder, unspecified Plan: Increase Zoloft to 100 mg a day . counseling was recommended but patient declined. Orders: Orders Comprehensive [facility]. Panel Fast Today E78.5 - Hyperlipidemia, unspecified, F41.9 - Anxiety disorder, unspecified, K21.9 - Gastro-esophageal reflux disease without esophagitis, K63.5 - Polyp of colon, Z00.00 - Encounter for general adult medical examination without abnormal findings Lipid Panel Today E78.5 - Hyperlipidemia, unspecified, F41.9 - Anxiety disorder, unspecified, K21.9 - Gastro-esophageal reflux disease without esophagitis, K63.5 - Polyp of colon, Z00.00 - Encounter for general adult medical examination without abnormal findings TSH reflex Free T4 Today E78.5 - Hyperlipidemia, unspecified, F41.9 - Anxiety disorder, unspecified, K21.9 - Gastro-esophageal reflux disease without esophagitis, K63.5 - Polyp of colon, Z00.00 - Encounter for general adult medical examination without abnormal findings Complete Blood Count Auto Diff Today E78.5 - Hyperlipidemia, unspecified, F41.9 - Anxiety disorder, unspecified, K21.9 - Gastro-esophageal reflux disease without esophagitis, K63.5 - Polyp of colon, Z00.00 - Encounter for general adult medical examination without abnormal findings PSA,Total (Free>4and<10) Today E78.5 - Hyperlipidemia, unspecified, F41.9 - Anxiety disorder, unspecified, K21.9 - Gastro-esophageal reflux disease without esophagitis, K63.5 - Polyp of colon, Z00.00 - Encounter for general adult medical examination without abnormal findings UA w Microscopic Today E78.5 - Hyperlipidemia, unspecified, F41.9 - Anxiety disorder, unspecified, K21.9 - Gastro-esophageal reflux disease without esophagitis, K63.5 - Polyp of colon, Z00.00 - Encounter for general adult medical examination without abnormal findings Medications: New sertraline 100 mg PO DAILY 90 tabs 0RF ciclopirox 8% 1 appl topical BEDTIME 6.6 mL 1RF Discontinued sertraline (Zoloft) 1/2 tabl for 3 days, then increase to 50 mg Discontinued Reason: Doctor's Order 50 mg PO DAILY 30 tabs 3RF Coding Level of Care Code Est Pt Level 4 (29177) Diagnoses Annual physical exam Z00.00 Hyperlipemia E78.5 GERD (gastroesophageal reflux disease) K21.9 Colon polyps K63.5 Anxiety F41.9
[2023-08-25 12:48] VITALS: BP 114/74; PULSE 90; O2SAT 94; BMI 23.5
== END 2023-08-25 13:32 | disposition home or self-care (01) ==
PROVIDERS: PCP Internal Medicine; Visit Provider Internal Medicine
DX: E78.5 Hyperlipidemia, unspecified (principal); K21.9 Gastro-esophageal reflux disease without esophagitis; K63.5 Polyp of colon; F41.9 Anxiety disorder, unspecified
CPT/HCPCS: 99214

== ENCOUNTER 2023-08-27 08:08 | Outpatient (REF) | payer OTHER, SELFPAY ==
[2023-08-27 10:26] LABS: MANUAL DIFF FLAG NO
[2023-08-27 10:51] LABS: Basophils Percent Auto 0.5 % (0-2); Eosinophils Absolute Auto 0.1 X10*3/uL (0.0-0.4); Eosinophils Percent Auto 1.8 % (0-4); Hematocrit 46.8 % (42.0-52.0); Hemoglobin 15.7 g/dl (14.0-18.0); Imm Gran Abs Auto 0.02 X10*3/uL (0.00-0.03); Imm Gran Pct Auto 0.3 % (0.0-0.4); Lymphocytes Absolute Auto 1.4 X10*3/uL (1.2-4.9); Lymphocytes Percent Auto 18.3 % (20-40); Mean Corpuscular HGB Conc 33.5 g/dl (31.0-36.0); Mean Corpuscular Hemoglobin 32.1 pg (27.0-33.0); Mean Corpuscular Volume 95.7 fL (80.0-98.0); Mean Platelet Volume 9.7 fL (9.4-12.4); Monocytes Absolute Auto 0.6 X10*3/uL (0.1-1.2); Monocytes Percent Auto 7.9 % (2-11); Neutrophils Absolute Auto 5.6 x10*3/uL (2.0-8.3); Neutrophils Percent Auto 71.2 % (45-73); Platelet Count 228 X10*3/uL (160-400); Red Blood Count 4.89 X10*6/uL (4.60-5.80); Red Cell Distribution Width 11.9 % (11.0-16.0); White Blood Count 7.9 X10*3/uL (4.8-10.8)
[2023-08-27 11:10] LABS: Appearance Urine Clear; Color Urine Yellow; Glucose Urine UA Negative (Negative); Leukocyte Esterase Urine Negative (Negative); Nitrite Urine Negative (Negative); PH 7.5 (5.0-9.0); Urine Blood Negative (Negative); Urine Ketones Negative (Negative); Urine Protein Negative (Neg-Trace)
[2023-08-27 11:11] LABS: Alanine Aminotransferase 21 U/L (0-40); Albumin Level 4.2 g/dL (3.5-5.0); Alkaline Phosphatase 76 U/L (39-117); Anion Gap 12 (12-20); Aspartate Amino Transferase 19 U/L (5-37); Bilirubin Total 0.4 mg/dL (0.0-1.0); Blood Urea Nitrogen 16 mg/dL (9-16); Calcium 9.7 mg/dL (8.4-10.2); Carbon Dioxide 30 mmol/L (22-29); Chloride 101 mmol/L (96-108); Cholesterol 185 mg/dL (<200); Estimated Glomerular Filt Rate > 60; Glucose Fasting 88 mg/dL (60-99); HDL Cholesterol 54 mg/dL (>40); LDL Cholesterol Calculated 114 mg/dL (<100); Potassium 4.1 mmol/L (3.3-5.1); Sodium 139 mmol/L (135-145); Total Protein 7.5 g/dL (6.5-8.0); Triglycerides 88 mg/dL (<150)
[2023-08-27 11:18] LABS: Bacteria Urine None Seen (None Seen); Hyaline Casts Urine 0-2 /LPF (0-2); RBC Urine 0-2 /HPF (0-2); Squamous Epithelial Cell Urine 0-2 /HPF (0-2); WBC Urine 0-5 /HPF (0-5)
[2023-08-27 11:18] LABS: PSA,Total (Free>4and<10) 3.82 ng/mL (0.00-4.00)
[2023-08-27 11:28] LABS: TSH reflex Free T4 2.83 uIU/mL (0.32-4.0)
== END 2023-08-27 08:09 | disposition home or self-care (01) ==
LOC: HO.HMGCLDS 08:08
PROVIDERS: PCP Internal Medicine; Visit Provider Internal Medicine
DX: Z00.00 Encounter for general adult medical examination without abnormal findings (principal); Z12.5 Encounter for screening for malignant neoplasm of prostate; E78.5 Hyperlipidemia, unspecified; K21.9 Gastro-esophageal reflux disease without esophagitis; K63.5 Polyp of colon; F41.9 Anxiety disorder, unspecified
CPT/HCPCS: 36415; 80053; 80061; 81001; 84153; 84443; 85025

== ENCOUNTER 2023-09-01 08:58 | Outpatient (AMB) | payer OTHER, SELFPAY ==
[2023-09-01 08:59] VITALS: BP 118/70; PULSE 84; O2SAT 97; BMI 24.0
--- NOTE | 2023-09-01 08:59 | A.OFFPC_ITS ---
Vital Signs 09/01/23 08:59 Height 5 ft 10 in Weight 167 lb BMI 24.0 BP 118/70 Blood Pressure Location Rt brachial Position Sitting Pulse 84 Pulse Source Pulse Oximeter Pulse Oximetry (%) 97 Oxygen Delivery Method Room Air Intake Visit Reasons: PE Intake Note: Pt is here today for PE. Allergies No Known Allergies Allergy (Verified 09/01/23 09:02) Tobacco use date assessed: 08/25/23 Dental Screening Dental Screen Date: 07/21/23 HPI PE HPI Details Pt presents for PE. PFSH Medical History GERD (gastroesophageal reflux disease) Tick bite Hyperlipemia Annual physical exam Left ACL tear Bulging lumbar disc Bulging of cervical intervertebral disc Surgical History H/O hernia repair H/O colonoscopy Family History Father Myocardial infarct Mother No problems noted. Social History Housing: House Alcohol intake: current Alcohol intake frequency: holidays/special occasions only Patient Tobacco Use Status: Never used Tobacco e-Cigarette/Vaping Use: Never Used Current occupational status: employed Cognitive needs: No Hearing needs: No Vision needs: Yes Questionnaire Thrive Questionnaire Date Thrive assessed: 08/25/23 AUDIT C Alcohol Use Questionnaire (AUDIT-C) 1. How often do you have a drink containing alcohol?: Monthly or less 2. How many drinks containing alcohol do you have on a typical day when you are drinking?: 1 or 2 3. How often do you have six or more drinks on one occasion?: Never Total Score: 1 GILBERT-7 AMB Questionnaire GILBERT-7 Date GILBERT - 7 assessed: 08/26/22 Source: Developed by Drs. Jamari Rodriguez, Babs Barahona, Daniel Cortez and colleagues, with an educational andie from [email or web address]. Review of Systems Const All systems reviewed & are unremarkable except as noted in HPI and below Reports no additional complaints Eyes Reports no additional complaints ENT Reports no additional complaints Card Reports no additional complaints Resp Reports no additional complaints GI Reports no additional complaints Reports no additional complaints Physical exam (Primary Care) Vital Signs: Last Vital Signs Pulse 84 09/01/23 08:59 BP 118/70 09/01/23 08:59 Pulse Ox 97 09/01/23 08:59 Oxygen Delivery Method Room Air 09/01/23 08:59 BMI result Body Mass Index 24.0 Tobacco/Smoking Status: Tobacco use Status Tobacco use date assessed 08/25/23 09/01/23 09:04 Patient Tobacco Use Status Never used Tobacco 09/01/23 09:04 e-Cigarette/Vaping Use Never Used 09/01/23 09:04 Thrive Assessment: Date of Thrive Assessment Date Thrive assessed 08/25/23 09/01/23 09:04 Const General: no acute distress HENMT Head: Yes normal to inspection Ears: hearing grossly normal bilaterally Face and sinus: Yes normal facial exam Mouth: Normal oral and palatal mucosa present Eyes General: appearance normal, both eyes and all related structures Neck Neck: Yes no lymphadenopathy and Yes supple Resp Effort & Inspection: normal respiratory effort Auscultation: clear to auscultation bilaterally Cardio Rhythm: regular rhythm Heart sounds: S1 normal heart sound present and S2 normal heart sound present GI Inspection: Yes normal to inspection Palpation (GI): Soft to palpation Percussion: Yes normal to percussion Auscultation: normal bowel sounds Assessment and Plan Assessment & Plan (1) Annual physical exam: Code(s): Z00.00 - Encounter for general adult medical examination without abnormal findings Plan: Well-balanced diet regular physical activity discussed with the patient (2) Anxiety: Code(s): F41.9 - Anxiety disorder, unspecified Plan: Continue Zoloft, stress management mindfulness discussed with the patient. He declined counseling. Follow-up in 2 months Coding Level of Care Code Est Pt Prev Care 40-64y(49343) Diagnoses Annual physical exam Z00.00 Anxiety F41.9
== END 2023-09-01 09:38 | disposition home or self-care (01) ==
PROVIDERS: Visit Provider Internal Medicine
DX: Z00.00 Encounter for general adult medical examination without abnormal findings (principal); F41.9 Anxiety disorder, unspecified
CPT/HCPCS: 99396

== ENCOUNTER 2024-09-22 13:48 | Outpatient (AMB) | payer OTHER, SELFPAY ==
--- NOTE | 2024-09-22 13:51 | MHC.PC.OV ---
Vital Signs 09/22/24 13:53 Height 5 ft 10 in Weight 168 lb BMI 24.1 BP 110/70 Blood Pressure Location Lt brachial Position Sitting Respiration 18 Pulse 79 Pulse Source Pulse Oximeter Pulse Oximetry (%) 97 Oxygen Delivery Method Room Air Intake Visit Reasons: Annual PE Intake Note: Pt is here today for PE. Allergies No Known Allergies Allergy (Verified 09/22/24 13:57) Medication List - Last Reconciled 09/22/24 by Lora Martinez MD ciclopirox 8% 1 appl topical BEDTIME multivitamin 1 tab PO DAILY omega-3 fatty acids 500 mg PO DAILY pravastatin 20 mg PO DAILY sertraline 100 mg PO DAILY zolpidem 5 mg PO BEDTIME PRN Tobacco use date assessed: 09/22/24 Dental Screening Dental Screen Date: 09/22/24 Did you have a dental visit in the last 12 months?: Yes Did you have a dental problem in the last 6 months where you did not have access to dental care?: No Was dental information given to patient?: Patient has dentist HPI Annual PE HPI Details Patient presents for physical. He complains of bilateral hand burning pain numbness and tingling sensation worse at night. Patient is using his hands a lot at work, [employer] business. He complains of chronic cough occasionally with white sputum postnasal drip on and off. Patient denies pleurisy fever chills night sweats weight loss PFSH Medical History GERD (gastroesophageal reflux disease) Tick bite Hyperlipemia Annual physical exam Left ACL tear Bulging lumbar disc Bulging of cervical intervertebral disc Surgical History H/O hernia repair H/O colonoscopy Family History Father Myocardial infarct Mother No problems noted. Social History Housing: House Alcohol intake: current Alcohol intake frequency: holidays/special occasions only Patient Tobacco Use Status: Never used Tobacco e-Cigarette/Vaping Use: Never Used service: No Current occupational status: employed Cognitive needs: No Hearing needs: No Vision needs: Yes Questionnaire PHQ-9 Over the last 2 weeks, how often have you been bothered by any of the following problems? 1. Little interest or pleasure in doing things: not at all 2. Feeling down, depressed, or hopeless: not at all 3. Trouble falling or staying asleep, or sleeping too much: several days 4. Feeling tired or having little energy: several days 5. Poor appetite or overeating: not at all 6. Feeling bad about yourself - or that you are a failure or have let yourself or your family down: not at all 7. Trouble concentrating on things, such as reading the newspaper or watching television: not at all 8. Moving or speaking so slowly that other people could have noticed. Or the opposite - being so fidgety or restless that you have been moving around a lot more than usual: not at all 9. Thoughts that you would be better off or of hurting yourself in some way: not at all Total score: 2 Depression Screening Interpretation: Negative Depression Screening Done: Yes 24563 - PHQ-9 Billing: Yes Source: Developed by Drs. Jamari Rodriguez, Babs Barahona, Daniel Cortez and colleagues, with an educational andie from [employer]. Thrive Questionnaire Date Thrive assessed: 09/22/24 I am a: Patient What is your living situation today?: I choose not to answer this question Within the past 12 months, did the food you bought not last and you didn't have the money to get more?: I choose not to answer this question Within the past 12 months, did you worry whether your food would run out before you got money to buy more?: I choose not to answer this question Do you have trouble paying for medicines?: I choose not to answer this question Do you have trouble getting transportation to medical appointments?: I choose not to answer this question Do you have trouble paying your heating and electricity bill?: I choose not to answer this question Do you have trouble taking care of your child, family member or friend?: I choose not to answer this question Do you have trouble with day-to-day activities such as bathing, preparing meals, shopping, managing finances, etc.?: I choose not to answer this question Are you currently unemployed and looking for a job?: I choose not to answer this question Are you interested in more education?: I choose not to answer this question Please select the resources that you would like help with: None Currently or been in a relationship where the following occur: I choose not to answer THRIVE Score: 0 AUDIT C Alcohol Use Questionnaire (AUDIT-C) 1. How often do you have a drink containing alcohol?: 2-4 times a month 2. How many drinks containing alcohol do you have on a typical day when you are drinking?: 1 or 2 3. How often do you have six or more drinks on one occasion?: Never Total Score: 2 GILBERT-7 AMB Questionnaire GILBERT-7 Date GILBERT - 7 assessed: 09/22/24 Feeling nervous, anxious, or on edge: 0 = Not at all Not being able to stop or control worryin = Not at all Worrying too much about different things: 0 = Not at all Trouble relaxin = Not at all Being so restless that it is hard to sit still: 0 = Not at all Becoming easily annoyed or irritable: 0 = Not at all Feeling afraid as if something awful might happen: 0 = Not at all Total GILBERT-7 score (0-4 normal; 5-9 mild; 10-14 moderate; 15-21 severe): 0 Source: Developed by Drs. Jamari Rodriguez, Babs Barahona, Daniel Cortez and colleagues, with an educational andie from [employer]. GILBERT-7 Assessment Billing GILBERT-7 Assessment Tool: GILBERT-7 Assessment 03637 Review of Systems Const All systems reviewed & are unremarkable except as noted in HPI and below Eyes Reports no additional complaints ENT Reports no additional complaints Card Reports no additional complaints Resp Reports no additional complaints GI Reports no additional complaints Reports no additional complaints Physical exam (Primary Care) Vital Signs: Last Vital Signs Pulse 79 09/22/24 13:53 Resp 18 09/22/24 13:53 BP 110/70 09/22/24 13:53 Pulse Ox 97 09/22/24 13:53 Oxygen Delivery Method Room Air 09/22/24 13:53 BMI result Body Mass Index 24.1 Tobacco/Smoking Status: Tobacco use Status Tobacco use date assessed 09/22/24 09/22/24 14:02 Patient Tobacco Use Status Never used Tobacco 09/22/24 13:52 e-Cigarette/Vaping Use Never Used 09/22/24 13:52 PHQ-9: PHQ-9 Score PHQ-9: Total score 2 09/22/24 14:02 Depression Screening Interpretation: Negative Thrive Assessment: Date of Thrive Assessment Date Thrive assessed 09/22/24 09/22/24 14:02 Currently or been in a relationship where the following occur: I choose not to answer Const General: no acute distress HENMT Head: Yes normal to inspection Ears: TM's normal bilaterally Face and sinus: Yes normal facial exam Mouth: Normal oral and palatal mucosa present Throat: Yes postnasal drainage Eyes General: appearance normal, both eyes and all related structures Neck Neck: Yes no lymphadenopathy and Yes supple Resp Effort & Inspection: normal respiratory effort Auscultation: clear to auscultation bilaterally Cardio Rhythm: regular rhythm Heart sounds: S1 normal heart sound present and S2 normal heart sound present GI Inspection: Yes normal to inspection Palpation (GI): Soft to palpation Percussion: Yes normal to percussion Auscultation: normal bowel sounds Coding Level of Care Code Est Pt Prev Care 40-64y(46408) Diagnoses Carpal tunnel syndrome on both sides G56.03 Asthma J45.909 Hyperlipemia E78.5 Annual physical exam Z00.00 Additional Codes GILBERT-7 Assessment Billing - GILBERT-7 Assessment Tool: GLIBERT-7 Assessment 70762 ([id number]) PHQ-9 - 53230 - PHQ-9 Billing: Yes ([id number]) Assessment & Plan Assessment & Plan (1) Carpal tunnel syndrome on both sides: Code(s): G56.03 - Carpal tunnel syndrome, bilateral upper limbs Category: Medical Plan: Check nerve conduction studies (2) Asthma: Code(s): J45.909 - Unspecified asthma, uncomplicated Category: Medical Plan: Check PFTs and chest x-ray for chronic cough (3) Hyperlipemia: Comment: Family history of CAD, father and brother in 50s Code(s): E78.5 - Hyperlipidemia, unspecified Category: Medical Plan: Continue statin (4) Annual physical exam: Code(s): Z00.00 - Encounter for general adult medical examination without abnormal findings Category: Medical Plan: Well-balanced diet regular physical activity discussed with the patient he is up-to-date with colonoscopy Orders: Orders NE electromyogram (EMG) Today G56.03 - Carpal tunnel syndrome, bilateral upper limbs PFT pulmonary function test Today J45.909 - Unspecified asthma, uncomplicated UA w Microscopic Today E78.5 - Hyperlipidemia, unspecified, Z00.00 - Encounter for general adult medical examination without abnormal findings PSA,Total (Free>4and<10) 1 Year E78.5 - Hyperlipidemia, unspecified, W57.XXXA - Bitten or stung by nonvenomous insect and other nonvenomous arthropods, initial encounter, Z00.00 - Encounter for general adult medical examination without abnormal findings Lyme IgG/IgM w/reflex to WB 1 Year E78.5 - Hyperlipidemia, unspecified, W57.XXXA - Bitten or stung by nonvenomous insect and other nonvenomous arthropods, initial encounter, Z00.00 - Encounter for general adult medical examination without abnormal findings NE nerve conduction velocity Today G56.03 - Carpal tunnel syndrome, bilateral upper limbs XR chest 2V Today J45.909 - Unspecified asthma, uncomplicated Comprehensive [place]. Panel Fast Today E78.5 - Hyperlipidemia, unspecified, Z00.00 - Encounter for general adult medical examination without abnormal findings Complete Blood Count Auto Diff Today E78.5 - Hyperlipidemia, unspecified, Z00.00 - Encounter for general adult medical examination without abnormal findings Lipid Panel Today E78.5 - Hyperlipidemia, unspecified, Z00.00 - Encounter for general adult medical examination without abnormal findings PSA,Total (Free>4and<10) Today E78.5 - Hyperlipidemia, unspecified, Z00.00 - Encounter for general adult medical examination without abnormal findings Lyme IgG/IgM w/reflex to WB Today W57.XXXA - Bitten or stung by nonvenomous insect and other nonvenomous arthropods, initial encounter Comprehensive [place]. Panel Fast 1 Year E78.5 - Hyperlipidemia, unspecified, W57.XXXA - Bitten or stung by nonvenomous insect and other nonvenomous arthropods, initial encounter, Z00.00 - Encounter for general adult medical examination without abnormal findings Complete Blood Count Auto Diff 1 Year E78.5 - Hyperlipidemia, unspecified, W57.XXXA - Bitten or stung by nonvenomous insect and other nonvenomous arthropods, initial encounter, Z00.00 - Encounter for general adult medical examination without abnormal findings Lipid Panel 1 Year E78.5 - Hyperlipidemia, unspecified, W57.XXXA - Bitten or stung by nonvenomous insect and other nonvenomous arthropods, initial encounter, Z00.00 - Encounter for general adult medical examination without abnormal findings UA w Microscopic 1 Year E78.5 - Hyperlipidemia, unspecified, W57.XXXA - Bitten or stung by nonvenomous insect and other nonvenomous arthropods, initial encounter, Z00.00 - Encounter for general adult medical examination without abnormal findings Medications: Discontinued zolpidem may repeat once if no response in 30-60 minutes Discontinued Reason: Doctor's Order 5 mg PO BEDTIME PRN 7 tabs 0RF sleep sertraline Discontinued Reason: Doctor's Order 100 mg PO DAILY 90 tabs 0RF
[2024-09-22 13:53] VITALS: BP 110/70; PULSE 79; RESP 18; O2SAT 97; BMI 24.1
== END 2024-09-22 14:23 | disposition home or self-care (01) ==
LOC: HO.HMCC 13:49
PROVIDERS: PCP Internal Medicine; Visit Provider Internal Medicine
DX: G56.03 Carpal tunnel syndrome, bilateral upper limbs (principal); J45.909 Unspecified asthma, uncomplicated; E78.5 Hyperlipidemia, unspecified; Z00.00 Encounter for general adult medical examination without abnormal findings

== ENCOUNTER → 2024-09-22 13:48 | Outpatient (BNVA) | payer OTHER, SELFPAY | PROVIDERS: PCP Internal Medicine; Visit Provider Internal Medicine | DX: Z00.00 Encounter for general adult medical examination without abnormal findings (principal); G56.03 Carpal tunnel syndrome, bilateral upper limbs; J45.909 Unspecified asthma, uncomplicated; E78.5 Hyperlipidemia, unspecified; Z79.899 Other long term (current) drug therapy | CPT/HCPCS: 96127 ==

== ENCOUNTER 2024-09-23 08:27 | Outpatient (REF) | payer OTHER, SELFPAY ==
--- NOTE | ~2024-09-23 | XR_ITS ---
EXAMINATION: XR CHEST CLINICAL INFORMATION: J45.909 - Unspecified asthma, uncomplicated COMPARISON: None available. TECHNIQUE: 2 views of the chest were obtained. FINDINGS: No consolidation, pleural effusion or pneumothorax. Cardiomediastinal silhouette size is normal. Mild multilevel thoracic spondylosis. XR/XR chest 2V IMPRESSION: No acute airspace disease. Electronically signed by: Gabino Jeronimo MD 09/27/2024 07:16 AM EDT
[2024-09-23 11:15] LABS: MANUAL DIFF FLAG NO
[2024-09-23 11:23] LABS: Appearance Urine Clear; Color Urine Yellow; Glucose Urine UA Negative (Negative); Leukocyte Esterase Urine Negative (Negative); Nitrite Urine Negative (Negative); PH 7.5 (5.0-9.0); Specific Gravity - Urine 1.015 (1.005-1.025); Urine Blood Negative (Negative); Urine Ketones Negative (Negative); Urine Protein Negative (Neg-Trace)
[2024-09-23 11:25] LABS: Basophils Percent Auto 0.6 % (0-2); Eosinophils Absolute Auto 0.2 X10*3/uL (0.0-0.4); Eosinophils Percent Auto 3.1 % (0-4); Hemoglobin 15.2 g/dl (14.0-18.0); Imm Gran Abs Auto 0.02 X10*3/uL (0.00-0.03); Imm Gran Pct Auto 0.4 % (0.0-0.4); Lymphocytes Absolute Auto 1.6 X10*3/uL (1.2-4.9); Lymphocytes Percent Auto 30.6 % (20-40); Mean Corpuscular HGB Conc 33.8 g/dl (31.0-36.0); Mean Corpuscular Hemoglobin 31.7 pg (27.0-33.0); Mean Corpuscular Volume 93.9 fL (80.0-98.0); Mean Platelet Volume 9.9 fL (9.4-12.4); Monocytes Absolute Auto 0.5 X10*3/uL (0.1-1.2); Monocytes Percent Auto 10.1 % (2-11); Neutrophils Absolute Auto 2.8 x10*3/uL (2.0-8.3); Neutrophils Percent Auto 55.2 % (45-73); Platelet Count 225 X10*3/uL (160-400); Red Blood Count 4.79 X10*6/uL (4.60-5.80); Red Cell Distribution Width 12.3 % (11.0-16.0); White Blood Count 5.1 X10*3/uL (4.8-10.8)
[2024-09-23 11:26] LABS: Bacteria Urine None Seen (None Seen); Hyaline Casts Urine 0-2 /LPF (0-2); RBC Urine 0-2 /HPF (0-2); Squamous Epithelial Cell Urine 0-2 /HPF (0-2); WBC Urine 0-5 /HPF (0-5)
[2024-09-23 12:16] LABS: PSA,Total (Free>4and<10) 5.54 ng/mL (0.00-4.00)
[2024-09-23 12:21] LABS: Alanine Aminotransferase 48 U/L (0-40); Alkaline Phosphatase 58 U/L (39-117); Anion Gap 10 (12-20); Aspartate Amino Transferase 39 U/L (5-37); Bilirubin Total 0.5 mg/dL (0.0-1.0); Blood Urea Nitrogen 15 mg/dL (9-16); Calcium 9.6 mg/dL (8.4-10.2); Carbon Dioxide 28 mmol/L (22-29); Chloride 105 mmol/L (96-108); Cholesterol 177 mg/dL (<200); Estimated Glomerular Filt Rate > 60; Glucose Fasting 88 mg/dL (60-99); HDL Cholesterol 55 mg/dL (>40); LDL Cholesterol Calculated 105 mg/dL (<100); Potassium 4.5 mmol/L (3.3-5.1); Sodium 138 mmol/L (135-145); Triglycerides 87 mg/dL (<150)
[2024-09-25 19:29] LABS: Lyme Abs Screen <0.90 index
[2024-09-26 15:29] LABS: Free Prostate Spec Ag 0.8 ng/mL; Percent Free Prostate Spec Ag 16 % (calc) (>25)
== END 2024-09-23 08:28 | disposition home or self-care (01) ==
LOC: HO.HMGCX 08:27
PROVIDERS: PCP Internal Medicine; Visit Provider Internal Medicine
DX: Z00.00 Encounter for general adult medical examination without abnormal findings (principal); E78.5 Hyperlipidemia, unspecified; J45.909 Unspecified asthma, uncomplicated; T14.8XXA Other injury of unspecified body region, initial encounter; Z12.5 Encounter for screening for malignant neoplasm of prostate
CPT/HCPCS: 36415; 71046; 80053; 80061; 81001; 84153; 84154; 85025; 86617; 86618

== ENCOUNTER → 2024-09-23 09:05 | Outpatient (BNV) | payer OTHER, SELFPAY | PROVIDERS: PCP Internal Medicine; Visit Provider Radiology Diagnostic Radiology | DX: J45.909 Unspecified asthma, uncomplicated (principal) | CPT/HCPCS: 71046 ==

== ENCOUNTER 2024-10-31 | Outpatient (REF) | payer OTHER, SELFPAY ==
--- NOTE | 2024-10-31 08:21 | EMG_ITS ---
Bilateral median and ulnar motor and sensory studies were performed. Bilateral radial sensory study was performed and paraspinal muscles were tested with a needle. IMPRESSION: 1. Moderately severe bilateral median neuropathy across carpal tunnel. 2. Mild left ulnar neuropathy across cubital tunnel. MD JOSE ROBERTO Alvarez/ARNULFO / [id number]
--- OUTSIDE RECORDS SUMMARY | 2024-11-28 08:43 | XMS_ITS | Encounter Summary ---
Author Organization [facility] Address [address] [place] [address] Care Team Providers Care Entry Level Lab Technician Name Role Phone Lora Martinez MD Primary Care Provider [phone] Encounter Details Date Type Department Care Team (Late st Contact Info) Description 11/21/2024 Lab Requisition [facility] - Main Lab [address] [facility] [place] [address] Héctor Smiley MD [address] [facility] [address] [place], [place] [id number] Elevated prostate specific antigen (PSA) Social History Tobacco Use Types Packs/Day Years Used Date Smoking Tobacco: Never Assessed Sex and Gender Information Value Date Recorded Sex Assigned at Not on file Legal Sex Male 10:23 AM EDT Gender Identity Not on file Sexual Orientation Not on file documented as of this encounter Plan of Treatment Not on file documented as of this encounter Procedures Procedure Name Priority Date/Time Associated Diagnosis Comments AP OUTSIDE CONSULT Routine 11/20/2024 Elevated prostate specific antigen (PSA) documented in this encounter Results * Anatomic pathology outside consult (11/20/2024) Final Diagnosis A. Prostate, Left Mid [place] Biopsy: - Prostatic acinar adenocarcinoma (conventional type), grade group 1 ([place] score 3+3=6). - Tumor discontinuously involves 30% of 1 of 1 tissue core. B. Prostate, Left Lat [place] Biopsy: - Prostatic acinar adenocarcinoma (conventional type), grade group 1 ([place] score 3+3=6). - Tumor continuously involves 20% of 1 of 1 tissue core. C. Prostate, Left Mid [place] Biopsy: - Prostatic acinar adenocarcinoma (conventional type), grade group 2 ([place] score 3+4=7). - Percentage pattern 4: <5%. - Tumor continuously involves 66% of 1 of 1 tissue core. - Two tumor foci. D. Prostate, Left Lat Mid Biopsy: - Prostatic acinar adenocarcinoma (conventional type), grade group 1 ([place] score 3+3=6). - Tumor continuously involves 75% of 1 of 1 tissue core. E. Prostate, Left Mid [place] Biopsy: - Prostatic acinar adenocarcinoma (conventional type), grade group 2 (Bree score 3+4=7). - Percentage pattern 4: 10%. - Tumor continuously involves 88% of 1 of 1 tissue core. F. Prostate, Left Lat [place] Biopsy: - Prostatic acinar adenocarcinoma (conventional type), grade group 2 (Bree score 3+4=7). - Percentage pattern 4: 20%. - Tumor continuously involves 85% of 1 of 1 tissue core. G. Prostate, Right Mid [place] Biopsy: - Benign prostatic tissue. H. Prostate, Right Lat [place] Biopsy: - Benign prostatic tissue. I. Prostate, Right Mid [place] Biopsy: - Benign prostatic tissue. J. Prostate, Right Lat [place] Biopsy: - Atypical small acinar proliferation (JAIRO). K. Prostate, Right Mid [place] Biopsy: - Benign prostatic tissue. L. Prostate, Right Lat [place] Biopsy: - Benign prostatic tissue. 11/24/2024 12:39 PM EDT [facility] Clinical Information Elevated PSA PSA: 6.1 (10/16/24) PSA-Free: 1.20 (10/16/24) [id number] 11/24/2024 12:39 PM EDT [facility] Gross Description A. Prostate, Left Mid [place] Biopsy: Received, properly labeled, are two H and E stained slides and two unstained slides. B. Prostate, Left Lat [place] Biopsy: Received, properly labeled, are two H and E stained slides and two unstained slides. C. Prostate, Left Mid [place] Biopsy: Received, properly labeled, are two H and E stained slides and two unstained slides. D. Prostate, Left Lat [place] Biopsy: Received, properly labeled, are two H and E stained slides and two unstained slides. E. Prostate, Left Mid [place] Biopsy: Received, properly labeled, are two H and E stained slides and two unstained slides. F. Prostate, Left Lat [place] Biopsy: Received, properly labeled, are two H and E stained slides and two unstained slides. G. Prostate, Right Mid [place] Biopsy: Received, properly labeled, are two H and E stained slides and two unstained slides. H. Prostate, Right Lat [place] Biopsy: Received, properly labeled, are two H and E stained slides and two unstained slides. I. Prostate, Right Mid [place] Biopsy: Received, properly labeled, are two H and E stained slides and two unstained slides. J. Prostate, Right Lat [place] Biopsy: Received, properly labeled, are two H and E stained slides and two unstained slides. K. Prostate, Right Mid [place] Biopsy: Received, properly labeled, are two H and E stained slides and two unstained slides. L. Prostate, Right Lat [place] Biopsy: Received, properly labeled, are two H and E stained slides and two unstained slides. / 11/24/2024 12:39 PM EDT [facility] Disclaimer Unless otherwise specified, all tissue is 10% NB formalin fixed and paraffin embedded. Technical pathology services provided by [facility] at [address] [place] [address] [id number], [place] [address] (CLIA #[id number]/Lisa Fernandes MD, [employer]) 11/24/2024 12:39 PM EDT [facility] Tissue Prostate / Unknown 11/20/20242024 10:26 AM EDT Tissue specimen (specimen) Prostate / Unknown 11/20/2024 11/21/2024 10 :28 AM EDT Tissue specimen (specimen) Prostate / Unknown 11/20/2024 11/21/2024 10 :28 AM EDT Tissue specimen (specimen) Prostate / Unknown 11/20/2024 11/21/2024 10 :28 AM EDT Tissue specimen (specimen) Prostate / Unknown 11/20/2024 11/21/2024 10 :28 AM EDT Tissue specimen (specimen) Prostate / Unknown 11/20/2024 11/21/2024 10 :28 AM EDT Tissue specimen (specimen) Prostate / Unknown 11/20/2024 11/21/2024 10 :28 AM EDT Tissue specimen (specimen) Prostate / Unknown 11/20/2024 11/21/2024 10 :28 AM EDT Tissue specimen (specimen) Prostate / Unknown 11/20/2024 11/21/2024 10 :28 AM EDT Tissue specimen (specimen) Prostate / Unknown 11/20/2024 11/21/2024 10 :28 AM EDT Tissue specimen (specimen) Prostate / Unknown 11/20/2024 11/21/2024 10 :28 AM EDT Tissue specimen (specimen) Prostate / Unknown 11/20/2024 11/21/2024 10 :28 AM EDT us Héctor Smiley MD LAB PATHOLOGY ORDERABLES Fi nal Result [facility] ([facility] [address] [place] [address], documented in this encounter Visit Diagnoses Diagnosis Elevated prostate specific antigen (PSA) documented in this encounter Care Teams Entry Level Lab Technician Relationship Specialty Start Date End Date Lora Martinez MD [address] [place] [address] PCP - General Internal Medicine 11/21/24 documented as of this encounter
== END 2024-10-31 00:01 | disposition home or self-care (01) ==
LOC: HO.NEURO
PROVIDERS: PCP Internal Medicine; Visit Provider Internal Medicine
DX: G56.03 Carpal tunnel syndrome, bilateral upper limbs (principal)
CPT/HCPCS: 95886; 95911

== ENCOUNTER 2024-10-31 08:17 | Outpatient (REF) | payer OTHER, SELFPAY | END 2024-10-31 08:18 | disposition home or self-care (01) | LOC: HO.NEURO 08:17 | PROVIDERS: PCP Internal Medicine; Visit Provider Internal Medicine | DX: Z13.89 Encounter for screening for other disorder (principal) ==